=== PATIENT | male | born 1985 | race Caucasian/White ===

== ENCOUNTER 2018-07-14 22:57 | Emergency (ER) | payer OTHER ==
[~2018-07-14] VITALS: Ht 175.3 cm; Wt 75.0 kg
[2018-07-14 23:08] VITALS: BP 136/82
[2018-07-14] MEDS ORDERED: DEPAKOTE DR500 MG PO (23:13)
[2018-07-14] MEDS ORDERED: DESYREL50 MG PO (23:13)
[2018-07-14] MEDS ORDERED: ZOLOFT 100MG100 MG PO (23:14)
[2018-07-14] MEDS ORDERED: PRAZOSIN PO (23:14)
[2018-07-15] MEDS ORDERED: PREDNISONE20 M1 PO (00:34)
== END 2018-07-15 00:42 | disposition home or self-care (01) ==
LOC: ED 22:57
DX: L50.9 Urticaria, unspecified (principal); L02.31 Cutaneous abscess of buttock; F17.200 Nicotine dependence, unspecified, uncomplicated; F43.10 Post-traumatic stress disorder, unspecified; Z87.820 Personal history of traumatic brain injury; Z79.899 Other long term (current) drug therapy; F41.9 Anxiety disorder, unspecified

== ENCOUNTER → 2021-05-26 | Outpatient (CLI) | payer SELFPAY ==
[~2021-05-26] MED LIST: DEPAKOTE DR500 MG PO; DESYREL50 MG PO; PRAZOSIN PO; PREDNISONE20 M1 PO; ZOLOFT 100MG100 MG PO
== END ==
LOC: LAB 19:00
DX: R36.9 Urethral discharge, unspecified (principal)